=== PATIENT | female | born 1940 | race Caucasian/White ===

== ENCOUNTER 2018-06-18 13:17 | Emergency (ER) | payer OTHER ==
[2018-06-18 13:41] LABS: ADD MAN DIFF? NO
[2018-06-18] MEDS: ALBUTEROL 0.5% (NEB) 2.5 MG/0.5 ML AMP INH (13:43)
[2018-06-18] MEDS: IPRATROPIUM (NEB) 0.5 MG/2.5 ML AMP INH (13:43)
[2018-06-18 13:50] LABS: BASOPHILS % 0.2 % (0.0-2.0); EOSINOPHILS # 0.1 10^3/ul (0.0-0.5); EOSINOPHILS % 0.6 % (0.0-7.0); HEMATOCRIT 30.7 % (37.0-47.0); HEMOGLOBIN 9.9 g/dl (12.0-16.0); LYMPHOCYTES # 1.9 10^3/ul (0.8-2.9); LYMPHOCYTES % 14.1 % (15.0-51.0); MEAN CORPUSCULAR HEMOGLOBIN 31.3 pg (29.0-33.0); MEAN CORPUSCULAR HGB CONC 32.2 g/dl (32.0-37.0); MEAN CORPUSCULAR VOLUME 97.2 fl (82.0-101.0); MONOCYTE # 0.4 10^3/ul (0.3-0.9); NEUTROPHIL # 10.7 10^3/ul (1.6-7.5); NEUTROPHILS % 80.7 % (39.0-77.0); NUCLEATED RED BLOOD CELLS% 0.2 /100WBC (0.0-0.0); PLATELET COUNT 120 10^3/UL (140-415); RED BLOOD COUNT 3.16 10^6/ul (4.20-5.40); RED CELL DISTRIBUTION WIDTH 17.4 % (11.5-14.5)
[2018-06-18 13:50] LABS: WHITE BLOOD COUNT 13.2 10^3/ul (4.8-10.8)
[2018-06-18] MEDS: morphine 4 MG/ML VIAL IV (13:55)
[2018-06-18] MEDS: ONDANSETRON 4 MG INJ IV (13:55)
[2018-06-18] MEDS: FUROSEMIDE 40 MG INJ IV (13:56)
[2018-06-18 14:03] LABS: INR 1.27; PROTIME 16.1 Sec (11.9-14.9); PT RATIO 1.3
[2018-06-18 14:06] LABS: ALANINE AMINOTRANSFERASE 179 IU/L (13-69); ALBUMIN 3.8 g/dl (3.3-4.9); ALBUMIN/GLOBULIN RATIO 1.18; ALKALINE PHOSPHATASE 152 IU/L (42-121); AMYLASE 84 U/L (11-123); ANION GAP 16 (5-13); ASPARTATE AMINO TRANSFERASE 167 IU/L (15-46); BILIRUBIN,INDIRECT 0.4 mg/dl (0-1.1); BILIRUBIN,TOTAL 0.4 mg/dl (0.2-1.3); BLOOD UREA NITROGEN 55 mg/dl (7-20); CALCIUM 8.8 mg/dl (8.4-10.2); CARBON DIOXIDE 24 mmol/L (21-31); CHLORIDE 101 mmol/L (97-110); CREATININE 4.05 mg/dl (0.44-1.00); GLUCOSE 168 mg/dl (70-220); LIPASE 129 U/L (23-300); SODIUM 141 mmol/L (135-144)
[2018-06-18 14:07] LABS: PARTIAL THROMBOPLASTIN TIME 76.8 Sec (23.0-35.0)
[2018-06-18 14:09] LABS: POTASSIUM 5.9 mmol/L (3.5-5.1)
[2018-06-18 14:25] LABS: B-TYPE NATRIURETIC PEPTIDE 28900 PG/ML (0-450)
[2018-06-18 14:26] LABS: LACTIC ACID 3.9 mmol/L (0.5-2.0)
[2018-06-18 14:36] LABS: AADO2 Arterial 246.1 mmHg (7.0-24.0); Allen Test ACCEPTAB; Arterial Base Excess 2.2 mmol/L (-3.0-3); Arterial Blood Gas Oxygen Sat 99.1 mmHG (95.0-100.0); Arterial COHb 0.3 % (0.0-3.0); Arterial Fraction of Oxyhgb 98.6 % (93.0-99.0); Arterial HCO3 26.2 mmol/L (22.0-26.0); Arterial MetHb 0.2 % (0.0-1.5); Arterial Total Hemglobin 9.9 g/dl (12.0-18.0); Arterial pCO2 38.5 mmhg (35-45); Blood Gas IEPAP 15/5; Blood Gas PS 10; MODE MASK - BIPAP; Site Left Radial
[2018-06-18] MEDS: CA CHLORIDE 10% 10 ML SYRINGE IV (15:02)
[2018-06-18] MEDS: CEFEPIME 1GM/50 ML (PMX) 50 ML IVPB (15:02)
[2018-06-18] MEDS: NA BICARBONATE 8.4% 50 ML SYG IV (15:02)
[2018-06-18] MEDS: VANCOMYCIN 1 GM (PMX) 250 ML IVPB (15:58)
[2018-06-18] MEDS: NA POLYST SULFON 15 GM/60 ML BTL PO (15:59)
[2018-06-18 16:35] LABS: POTASSIUM 5.1 mmol/L (3.5-5.1)
[2018-06-18 16:38] LABS: TROPONIN-I < 0.012 ng/ml (0.000-0.120)
[2018-06-18] MEDS: SOD CHLORIDE 0.9% 500 ML IV (16:50)
[2018-06-18] MEDS: DILTIAZEM 25 MG INJ IV (16:51)
[2018-06-18] MEDS: METHYLPREDNISOLONE 125 MG INJ IV (17:58)
== END 2018-06-18 19:48 | disposition short-term general hospital (02) ==
LOC: E/R 19:48
DX: J81.0 Acute pulmonary edema (principal); I50.9 Heart failure, unspecified; I48.0 Paroxysmal atrial fibrillation; E87.5 Hyperkalemia; E11.22 Type 2 diabetes mellitus with diabetic chronic kidney disease; N18.6 End stage renal disease; R40.2142 Coma scale, eyes open, spontaneous, at arrival to emergency department; R40.2252 Coma scale, best verbal response, oriented, at arrival to emergency department; R40.2362 Coma scale, best motor response, obeys commands, at arrival to emergency department; Z99.2 Dependence on renal dialysis; Z79.82 Long term (current) use of aspirin; Z79.4 Long term (current) use of insulin
CPT/HCPCS: 36415; 36600; 71045; 80053; 82150; 82803; 83605; 83690; 83880; 84132; 84484; 85025; 85610; 85730; 86850; 86900; 86901; 87040; 93005; 94644; 94660; 96365; 96375; 99291-25